=== PATIENT | female | born 1980 | race American Indian/Alaskan Native ===

== ENCOUNTER 2019-05-01 11:06 | Emergency (ER) | payer MEDICARE ==
[2019-05-01 11:40] VITALS: BP 109/72
--- NOTE | 2019-05-01 11:40 | Event Note ---
ED Screening Note Date of service: 05/01/19 Time: 11:39 ED Screening Note: 39 yo female presents with abd pain with no BM x 3 days finally had a BM today but unable to push down,episodes of vomitting This initial assessment/diagnostic orders/clinical plan/treatment(s) is/are subject to change based on patients health status, clinical progression and re- assessment by fellow clinical providers in the ED. Further treatment and workup at subsequent clinical providers discretion. Patient/guardian urged not to elope from the ED as their condition may be serious if not clinically assessed and managed. Initial orders include: labs, CT, ua
[2019-05-01 12:26] LABS: Basophils % (Auto) 0.4 % (0.0-1.8); Eosinophils # (Auto) 0.1 K/mm3 (0.0-0.4); Eosinophils % (Auto) 3.1 % (0.0-4.3); Hematocrit 36.2 % (30.3-42.9); Hemoglobin 11.8 gm/dl (10.1-14.3); Lymphocytes # (Auto) 2.4 K/mm3 (1.2-5.4); Lymphocytes % (Auto) 51.2 % (13.4-35.0); Mean Corpuscular HGB Conc 33 % (30-34); Mean Corpuscular Volume 87 fl (79-97); Monocytes # (Auto) 0.4 K/mm3 (0.0-0.8); Monocytes % (Auto) 9.1 % (0.0-7.3); Platelet Count 349 K/mm3 (140-440); Red Blood Count 4.15 M/mm3 (3.65-5.03); Red Cell Distribution Width 13.4 % (13.2-15.2)
[2019-05-01 12:29] LABS: BUN/Creatinine Ratio 14; Blood Urea Nitrogen 10 mg/dL (7-17); Hemolysis Index 0
[2019-05-01 12:50] LABS: Bacteria,Urine 1+ /HPF (Negative); Bilirubin,Urine NEG (Negative); Blood,Urine NEG (Negative); Color,Urine Yellow (Yellow); Protein,Urine <15 mg/dL mg/dL (Negative); Urobilinogen,Urine < 2.0 mg/dL (<2.0)
--- NOTE | 2019-05-01 14:38 | Emergency Department Report ---
ED Abdominal Pain HPI - General Chief Complaint: Abdominal Pain Stated Complaint: ABD PAIN Time Seen by Provider: 05/01/19 14:15 Source: patient Mode of arrival: Ambulatory Limitations: No Limitations - History of Present Illness Initial Comments: Patient is a 39-year-old female that presents emergency room with complaints of left lower quadrant abdominal pain. Patient states that she is also having nausea vomiting. Patient states her symptoms started 3 days ago. Patient states [facility] and [facility] sent him here for evaluation. Patient denies chest pain. Patient states that she is having epigastric pain due to her nausea and vomiting. Patient states her pain is a 7 out of 10. Patient denies diarrhea. Patient denies blood in the vomitus. Patient denies blood in her stool. MD Complaint: abdominal pain -: Sudden Location: LLQ, epigastric Radiation: none Migration to: no migration Severity: severe Severity scale (0 -10): 7 Quality: stabbing Consistency: constant Improves With: rest Worsens With: vomiting, movement Associated Symptoms: nausea, vomiting. denies: diarrhea, fever, chills, constipation, dysuria, hematemesis, hematochezia, melena, hematuria, anorexia, syncope - Related Data Allergies Allergy/AdvReac Type Severity Reaction Status Date / Time escitalopram [From Lexapro] Allergy Itching Verified 05/01/19 11:08 hydrocodone Allergy Itching Verified 05/01/19 11:08 Sulfa (Sulfonamide Allergy Itching Verified 05/01/19 11:08 Antibiotics) ED Review of Systems ROS: Stated complaint: ABD PAIN Other details as noted in HPI Constitutional: denies: chills, fever Eyes: denies: eye pain, eye discharge, vision change ENT: denies: ear pain, throat pain Respiratory: denies: cough, shortness of breath, wheezing Cardiovascular: denies: chest pain, palpitations Endocrine: no symptoms reported Gastrointestinal: abdominal pain, nausea, vomiting. denies: diarrhea Genitourinary: denies: urgency, dysuria, discharge Musculoskeletal: denies: back pain, joint swelling, arthralgia Skin: denies: rash, lesions Neurological: denies: headache, weakness, paresthesias Psychiatric: denies: anxiety, depression Hematological/Lymphatic: denies: easy bleeding, easy bruising ED Past Medical Hx - Past Medical History Previous Medical History?: Yes Hx Psychiatric Treatment: Yes Additional medical history: NEUROPATHY MENTAL PROBLEMS - Surgical History Past Surgical History?: No - Family History Family history: no significant - Social History Smoking Status: Never Smoker Substance Use Type: None ED Physical Exam - General Limitations: No Limitations General appearance: alert, in no apparent distress - Head Head exam: Present: atraumatic, normocephalic - Eye Eye exam: Present: normal appearance - ENT ENT exam: Present: mucous membranes moist - Neck Neck exam: Present: normal inspection - Respiratory Respiratory exam: Present: normal lung sounds bilaterally. Absent: respiratory distress - Cardiovascular Cardiovascular Exam: Present: regular rate, normal rhythm. Absent: systolic murmur, diastolic murmur, rubs, gallop - GI/Abdominal GI/Abdominal exam: Present: soft, tenderness (left lower quadrant tenderness), normal bowel sounds - Extremities Exam Extremities exam: Present: normal inspection - Back Exam Back exam: Present: normal inspection - Neurological Exam Neurological exam: Present: alert, oriented X3 - Psychiatric Psychiatric exam: Present: normal affect, normal mood - Skin Skin exam: Present: warm, dry, intact, normal color. Absent: rash ED Course Vital Signs 05/01/19 11:38 Temperature 97.3 F L Pulse Rate 72 Respiratory 18 Rate Blood Pressure 109/72 O2 Sat by Pulse 96 Oximetry - Reevaluation(s) Reevaluation #1: Patient states she wants to leave. Patient states she started Saturday. Patient is only waiting on a pending CT scan. I discussed all of the results of patient. Patient states she refuses to stay. I discussed the risks with patient. Patient voiced understanding of risks of leaving the hospital AGAINST MEDICAL ADVICE. Patient signed AMA form. 05/01/19 16:40 ED Medical Decision Making - Lab Data Result diagrams: 05/01/19 12:01 05/01/19 12:01 - Medical Decision Making Patient is a 39-year-old female transferred to a complaints of nausea vomiting and abdominal pain.Abdominal pain is a left lower quadrant. Patient did not have any nausea vomiting in the ER. Patient became impatient and did not want to wait for CT scan results. Patient left the hospital AGAINST MEDICAL ADVICE. Prior to discharge patient was given all the risk and voiced understanding of the risk of leaving the hospital AGAINST MEDICAL ADVICE. Patient signed AMA form. The patient's labs unremarkable. Patient was still given discharge instructions - Differential Diagnosis abdominal pain. Diverticulitis. Nausea vomiting. Critical care attestation.: If time is entered above; I have spent that time in minutes in the direct care of this critically ill patient, excluding procedure time. ED Disposition Clinical Impression: Epigastric abdominal pain Abdominal pain Qualifiers: Abdominal location: left lower quadrant Qualified Code(s): R10.32 - Left lower quadrant pain Nausea & vomiting Qualifiers: Vomiting type: unspecified Vomiting Intractability: non-intractable Qualified Code(s): R11.2 - Nausea with vomiting, unspecified Disposition: LEFT AGAINST MED ADVICE Is pt being admited?: No Does the pt Need Aspirin: No Condition: Undetermined Instructions: Abdominal Pain (ED) Additional Instructions: Patient follow up with primary care to 3 days. Patient to follow up with gastrology to 3 days. Patient to return to the condition worse. Patient take Tylenol when necessary for pain. Referrals: PRIMARY CARE, [Primary Care Provider] - 2-3 Days Forms: AMA Form Time of Disposition: 16:41
--- NOTE | 2019-05-01 18:31 | Cat Scan Report ---
CT ABDOMEN AND PELVIS WITHOUT CONTRAST HISTORY: Abdominal pain. COMPARISON: None TECHNIQUE: Routine abdominal and pelvic CT exam performed without contrast. Lack of intravenous cont rast limits evaluation of the vascular and solid organs.. All CT scans at this location are performed using CT dose reduction for ALARA by means of automated exposure control. FINDINGS: CT ABDOMEN: Lung Bases: No significant abnormality. Liver: No significant abnormality. Biliary: No significant abnormality. Spleen: No significant abnormality. Unenlarged. Pancreas: No significant abnormality. Adrenals: No significant abnormality. Kidneys: There is a 3 mm stone in the lower pole of the left kidney. Lymphatics: No lymphadenopathy. Vasculature: No significant abnormality. Bowel/Peritoneum: No significant abnormality. No free air. No free fluid. Normal appendix. CT PELVIC: : No significant abnormality. Lymphatics: No lymphadenopathy. Osseous Structures: No aggressive appearing osseous lesions. Additional Findings: None IMPRESSION: 1. No acute findings. 2. Nonobstructing 3 mm left lower pole renal stone. Signer Name: Lobito Barnes MD Signed: 05/01/2019 6:27 PM Workstation Name: [id number]
== END 2019-05-01 16:41 | disposition left against medical advice (07) ==
LOC: ED 11:06
DX: R10.32 Left lower quadrant pain (principal); R11.2 Nausea with vomiting, unspecified; Z88.2 Allergy status to sulfonamides; Z88.8 Allergy status to other drugs, medicaments and biological substances; Z88.6 Allergy status to analgesic agent
CPT/HCPCS: 36415; 74176; 80048; 81001; 85025